=== PATIENT | female | born 1965 | race Caucasian/White ===

== ENCOUNTER 2017-10-12 10:32 | Observation (INO) | payer SELFPAY ==
[2017-10-12] MEDS ORDERED: Sodium Chloride 0.9% 2.5 ML Syringe FLUSH PRN (10:40)
[2017-10-12] MEDS ORDERED: Nitroglycerin 0.4 MG Tab.SL SL ONE (10:40)
[2017-10-12] MEDS ORDERED: Aspirin 81 MG Tab.Chew PO ONE (10:40)
[2017-10-12] MEDS ORDERED: Sodium Chloride 0.9% 10 ML Syringe FLUSH PRN (10:40)
[2017-10-12] MEDS ORDERED: Sodium Chloride 0.9% 1,000 ML IV ONE (10:40)
--- NOTE | 2017-10-12 10:40 | EDM.PDOC ---
ED HPI GENERAL MEDICAL PROBLEM - General Stated Complaint: chest pain Time Seen by Provider: 10/12/17 10:39 Source of Information: Reports: Patient History Limitations: Reports: No Limitations - History of Present Illness INITIAL COMMENTS - FREE TEXT/NARRATIVE: HISTORY AND PHYSICAL: []52-year-old female presents with chest pain more to the right History of Present Illness: []Patient had chest pain last night radiating around to the abdomen She did not take any medication for this Rating her pain as a 4/10 now She has extreme family history father had his first WI in his mid 30s and at 45 Brother at 49 with WI His another brother who had WI in his 40s, is currently still living Mother from [place] Does not take aspirin Takes [id number] vitamin E and black cohosh for menopausal symptoms She does have edema to the left leg Review of Systems: As per history of present illness and below otherwise all systems reviewed and negative. Past medical history: As per history of present illness and as reviewed below otherwise noncontributory. Surgical history: As per history of present illness and as reviewed below otherwise noncontributory. Social history: No reported history of drug or alcohol abuse. Family history: As per history of present illness and as reviewed below otherwise noncontributory. Physical exam: Alert female who is quite anxious answering questions appropriately in full sentences without any shortness of breath. She is nontoxic in appearance. Vital signs are reviewed. HEENT: Atraumatic, normocehpalic, pupils reactive, negative for conjunctival pallor or scleral icterus, mucous membranes moist, throat clear, neck supple, nontender, trachea midline. Lungs: Clear to auscultation, breath sounds equal bilaterally, chest non tender. Heart: S1S2, regular, negative for clicks, rubs, or JVD. Abdomen: Soft, nondistended, nontender. Negative for masses or hepatossplenmegaly. Negative for costovertebral tenderness. Pelvis: Stable nontender. Genitourinary: Deferred. Rectal: Deferred Extremities: Atraumatic, negative for cords or calf pain. Neurovascular unremarkable. Neuro: Awake, alert, oriented. Cranial nerves II through XII unremarkable. Cerebellum unremarkable. Motor and sensory unremarkable throughout. Exam nonfocal. Review with patient identifies that her chest pain is not present after the nitrostat was given I discussed with the patient her condition at this time is not showing cardiac activity causing the chest pain initially with her family history she needs to be observed and lab work reevaluated at intervals. She is agreeable to this recommended course of action. Patient has been discussed with Dr. Su who has accepted her for observaton Diagnostics: []CBC CMP troponin d-dimer PT/INR chest x-ray UA Telemetry Therapeutics: []Nitrostat NS Zofran Impression: []chest pain Rule out ACS Plan: []Refer for observation on telemetry Definitive disposition and diagnosis as appropriate pending reevaluation and review of above. Onset: Sudden Duration: Hour(s): (12) Location: Reports: Chest Quality: Reports: Ache Severity: Moderate Improves with: Reports: None Worsens with: Reports: None Associated Symptoms: Reports: Chest Pain chest pain Pain Score (Numeric/FACES): 3 - Related Data Allergies Allergy/AdvReac Type Severity Reaction Status Date / Time No Known Allergies Allergy Verified 06/26/15 09:23 Home Meds: Home Meds Black Cohosh 40 mg PO DAILY 10/12/17 [History] ED ROS GENERAL - Review of Systems Review Of Systems: ROS reveals no pertinent complaints other than HPI. ED EXAM, GENERAL - Physical Exam Exam: See Below (see dictation) EKG INTERPRETATION EKG Date: 10/12/17 Rhythm: Other (sinus tachycardia) Course - Vital Signs Last Recorded V/S: Last Vital Signs Temp 35.7 C 10/12/17 10:52 Pulse 99 10/12/17 10:52 Resp 20 10/12/17 10:52 BP 157/88 H 10/12/17 10:52 Pulse Ox 97 10/12/17 10:52 - Orders/Labs/Meds Orders: Active Orders 24 hr Category Date Time Status Patient Status [ADT] Stat ADT 10/12/17 12:29 Ordered Cardiac Monitoring [RC] . DIRECTED Care 10/12/17 10:40 Active EKG Documentation Completion [RC] STAT Care 10/12/17 10:40 Active Oxygen Therapy [RC] ASDIRECTED Care 10/12/17 10:40 Active Pulse Oximetry [RC] ASDIRECTED Care 10/12/17 10:40 Active Telemetry Monitoring [Cardiac Monitoring] [RC] . Care 10/12/17 12:30 Ordered DIRECTED Chest 1V Frontal [CR] Stat Exams 10/12/17 11:50 Taken HCG QUALITATIVE,URINE [URCHEM] Stat Lab 10/12/17 10:41 Ordered UA W/MICROSCOPIC [URIN] Stat Lab 10/12/17 10:41 Ordered Sodium Chloride 0.9% [Saline Flush] Med 10/12/17 10:40 Active 10 ml FLUSH ASDIRECTED PRN Sodium Chloride 0.9% [Saline Flush] Med 10/12/17 10:40 Active 2.5 ml FLUSH ASDIRECTED PRN Saline Lock Insert [OM.PC] Stat Oth 10/12/17 10:40 Ordered Medication Orders Sodium Chloride (Saline Flush) 10 ml FLUSH ASDIRECTED PRN PRN Reason: Keep Vein Open Sodium Chloride (Saline Flush) 2.5 ml FLUSH ASDIRECTED PRN PRN Reason: Keep Vein Open Labs: Laboratory Tests 10/12/17 10/12/17 10/12/17 Range/Units 10:50 10:50 10:50 WBC 9.90 (4.0-11.0) K/uL RBC 4.44 (4.30-5.90) M/uL Hgb 12.5 (12.0-16.0) g/dL Hct 37.9 (36.0-46.0) % MCV 85.4 (80.0-98.0) fL MCH 28.2 (27.0-32.0) pg MCHC 33.0 (31.0-37.0) g/dL RDW Std Deviation 41.4 (28.0-62.0) fl RDW Coeff of Candy 13 (11.0-15.0) % Plt Count 370 (150-400) K/uL MPV 10.60 (7.40-12.00) fL Neut % (Auto) 67.2 (48.0-80.0) % Lymph % (Auto) 28.0 (16.0-40.0) % [place] % (Auto) 4.2 (0.0-15.0) % Eos % (Auto) 0.4 (0.0-7.0) % Baso % (Auto) 0.2 (0.0-1.5) % Neut # (Auto) 6.7 H (1.4-5.7) K/uL Lymph # (Auto) 2.8 H (0.6-2.4) K/uL [place] # (Auto) 0.4 (0.0-0.8) K/uL Eos # (Auto) 0.0 (0.0-0.7) K/uL Baso # (Auto) 0.0 (0.0-0.1) K/uL Nucleated RBC % 0.0 /100WBC Nucleated RBCs # 0 K/uL INR 1.02 D-Dimer, Quantitative < 0.19 (0.0-0.52) mg/LFEU Sodium 140 (136-145) mmol/L Potassium 3.8 (3.5-5.1) mmol/L Chloride 106 (98-107) mmol/L Carbon Dioxide 27.4 (21.0-32.0) mmol/L BUN 12 (7.0-18.0) mg/dL Creatinine 0.9 (0.6-1.0) mg/dL Est Cr Clr Drug Dosing 61.17 mL/min Estimated GFR (MDRD) > 60.0 ml/min Glucose 166 H (74-106) mg/dL Calcium 9.0 (8.5-10.1) mg/dL Total Bilirubin 0.3 (0.2-1.0) mg/dL AST 25 (15-37) IU/L ALT 44 (14-63) IU/L Alkaline Phosphatase 85 (46-116) U/L Troponin I < 0.050 (0.000-0.056) ng/mL Total Protein 7.1 (6.4-8.2) g/dL Albumin 3.5 (3.4-5.0) g/dL Globulin 3.6 H (2.0-3.5) g/dL Albumin/Globulin Ratio 1.0 L (1.3-2.8) Amylase 38 (25-115) U/L Lipase 122 (73-393) U/L Meds: Medications Generic Name Dose Route Start Last Admin Trade Name Freq PRN Reason Stop Dose Admin Sodium Chloride 10 ml 10/12/17 10:40 Saline Flush FLUSH ASDIRECTED PRN Keep Vein Open Sodium Chloride 2.5 ml 10/12/17 10:40 Saline Flush FLUSH ASDIRECTED PRN Keep Vein Open Discontinued Medications Generic Name Dose Route Start Last Admin Trade Name Freq PRN Reason Stop Dose Admin Aspirin 324 mg 10/12/17 10:40 10/12/17 10:51 Aspirin PO 10/12/17 10:41 324 mg ONETIME ONE Administration Sodium Chloride 1,000 mls @ 999 mls/hr 10/12/17 10:40 10/12/17 10:58 Normal Saline IV 10/12/17 11:40 999 mls/hr BOLUS ONE Administration Nitroglycerin 0.4 mg 10/12/17 10:40 10/12/17 10:48 Nitrostat SL 10/12/17 10:41 0.4 mg ONETIME ONE Administration Ondansetron HCl 4 mg 10/12/17 10:46 10/12/17 10:54 Zofran IVPUSH 10/12/17 10:47 4 mg ONETIME ONE Administration Ondansetron HCl Confirm 10/12/17 10:47 10/12/17 11:05 Zofran Administered 10/12/17 10:48 Not Given Dose 4 mg .ROUTE .STK-MED ONE Departure - Departure Time of Disposition: 12:33 Disposition: Refer to Observation Condition: Good Clinical Impression: Atypical chest pain Referrals: PCP,Unknown [Primary Care Provider] - - My Orders Last 24 Hours: My Active Orders 10/12/17 10:40 Cardiac Monitoring [RC] . DIRECTED EKG Documentation Completion [RC] STAT Oxygen Therapy [RC] ASDIRECTED Pulse Oximetry [RC] ASDIRECTED Sodium Chloride 0.9% [Saline Flush] 10 ml FLUSH ASDIRECTED PRN Sodium Chloride 0.9% [Saline Flush] 2.5 ml FLUSH ASDIRECTED PRN Saline Lock Insert [OM.PC] Stat 10/12/17 10:41 HCG QUALITATIVE,URINE [URCHEM] Stat UA W/MICROSCOPIC [URIN] Stat 10/12/17 11:50 Chest 1V Frontal [CR] Stat 10/12/17 12:29 Patient Status [ADT] Stat 10/12/17 12:30 Telemetry Monitoring [Cardiac Monitoring] [RC] . DIRECTED - Assessment/Plan Last 24 Hours: My Active Orders 10/12/17 10:40 Cardiac Monitoring [RC] . DIRECTED EKG Documentation Completion [RC] STAT Oxygen Therapy [RC] ASDIRECTED Pulse Oximetry [RC] ASDIRECTED Sodium Chloride 0.9% [Saline Flush] 10 ml FLUSH ASDIRECTED PRN Sodium Chloride 0.9% [Saline Flush] 2.5 ml FLUSH ASDIRECTED PRN Saline Lock Insert [OM.PC] Stat 10/12/17 10:41 HCG QUALITATIVE,URINE [URCHEM] Stat UA W/MICROSCOPIC [URIN] Stat 10/12/17 11:50 Chest 1V Frontal [CR] Stat 10/12/17 12:29 Patient Status [ADT] Stat 10/12/17 12:30 Telemetry Monitoring [Cardiac Monitoring] [RC] . DIRECTED
[2017-10-12] MEDS ORDERED: Ondansetron 4 MG/2 ML SDV IVPUSH ONE (10:46)
[2017-10-12] MEDS ORDERED: Ondansetron 4 MG/2 ML SDV ONE (10:47)
[2017-10-12 12:14] LABS: CHLORIDE,CL 106 mmol/L (98-107); SODIUM,NA 140 mmol/L (136-145)
--- NOTE | 2017-10-12 13:57 | CR ---
EXAM DATE: 10/12/17 PATIENT'S AGE: 52 Patient: ELIZABETH STOKES Facility: [place], [place] Site . Site : 1965 Study: XRay Chest [id number]/22/2018 12:02:51 PM Ordering Physician: Doctor Conner Final Report: INDICATION: Chest pain. COMPARISON: None. FINDINGS: The bony thorax and soft tissue structures are intact. Cardiac and mediastinal silhouettes are normal in size, shape, contour, position. The pulmonary vasculature is normal. The lungs are free of infiltrate. There are no pleural effusions. IMPRESSION: Normal AP chest. Dictated by Wanda Walker MD @ Oct 12 2017 12:07PM (Electronic Signature) Report Signed by Proxy. GUANAKO
[2017-10-12] MEDS ORDERED: Nitroglycerin 2% Oint 1 GM UD Packet TOP PRN (15:41)
[2017-10-12] MEDS: Insulin Aspart 100 Units/ML 3 ML Pen SUBCUT SCH (21:29)
--- NOTE | 2017-10-12 23:13 | PCM.SN ---
- Free Text/Narrative Note: [id number]
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
[2017-10-13] MEDS: Insulin Aspart 100 Units/ML 3 ML Pen SUBCUT SCH ×2 (06:41→11:52)
[2017-10-13] MEDS ORDERED: Acetaminophen 325 MG Tab PO PRN (10:29)
[2017-10-13] MEDS ORDERED: Pantoprazole 40 MG Tab.CR PO SCH (10:55)
[2017-10-14] MEDS ORDERED: Lisinopril 5 MG Tab PO SCH (09:00)
[2017-10-14] MEDS ORDERED: Pantoprazole 40 MG Tab.CR PO SCH (10:31)
== END 2017-10-13 12:30 | disposition home or self-care (01) ==
LOC: MW.ED 10:32 → MW.MS 13:28
PROVIDERS: ADMIT Internal Medicine; ATTEND Internal Medicine
DX: R07.89 Other chest pain (principal); I10 Essential (primary) hypertension; E11.9 Type 2 diabetes mellitus without complications; E78.00 Pure hypercholesterolemia, unspecified
CPT/HCPCS: 36415; 71045; 71045-26; 80053; 80061; 81001; 81025; 82150; 82962; 83036; 83690; 84484; 85025; 85379; 85610; 93005; 96361; 96374; 99285-25; A9270-GY; G0378; J2405; J7040

== ENCOUNTER 2018-07-18 14:39 | Emergency (ER) | payer OTHER ==
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
[2018-07-18] MEDS ORDERED: Acetaminophen 500 MG Tab PO ONE (15:56)
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
== END 2018-07-18 16:30 | disposition home or self-care (01) ==
LOC: MW.ED 14:39
DX: M25.512 Pain in left shoulder (principal); R07.89 Other chest pain; E78.00 Pure hypercholesterolemia, unspecified; I10 Essential (primary) hypertension; J45.909 Unspecified asthma, uncomplicated; K21.9 Gastro-esophageal reflux disease without esophagitis; Z79.899 Other long term (current) drug therapy; V43.52XA Car driver injured in collision with other type car in traffic accident, initial encounter
CPT/HCPCS: 71101; 72125; 73000; 99284; A9270